=== PATIENT | female | born 1950 | race Two or more races ===

== ENCOUNTER 2019-11-27 10:37 | Emergency (ER) | payer MEDICARE ==
[~2019-11-27] VITALS: Ht 175.3 cm; Wt 38.6 kg
--- NOTE | 2019-11-27 10:45 | NUR ---
PT BIBA RA 89 "Was walking before breakfast felt dizzy/weak-fainted." PT IS AAOX4, NOT IN RESPIRATORY DISTRESS, V/S STABLE, KEPT RESTED AND COMFORTABLE, WILL CONTINUE TO MONITOR.
--- NOTE | 2019-11-27 10:47 | NUR ---
SEEN AND EXAMINED BY DR. ALFARO.
--- NOTE | 2019-11-27 10:50 | NUR ---
ER PHLEB AT BEDSIDE FOR BLOOD DRAW.
[2019-11-27] MEDS ORDERED: SPIR25TA6 PO (10:52)
[2019-11-27] MEDS ORDERED: LEVO75TA7 PO (10:52)
[2019-11-27 10:58] LABS: BASOPHILS # (AUTO) 0.1 /CMM (0.0-0.2); BASOPHILS % (AUTO) 2.4 % (0.0-2.0); EOSINOPHILS % (AUTO) 2.3 % (0.0-6.0); HEMATOCRIT 40 % (33-45); HEMOGLOBIN 13.3 g/dL (11.5-14.8); LYMPHOCYTES # (AUTO) 0.5 /CMM (0.8-4.8); LYMPHOCYTES % (AUTO) 18.2 % (20.0-44.0); MEAN CORPUSCULAR HGB CONC 33 g/dl (31.0-36.0); MEAN CORPUSCULAR VOLUME 103 fL (82-100); MONOCYTES # (AUTO) 0.2 /CMM (0.1-1.30); MONOCYTES % (AUTO) 7.2 % (2.0-12.0); NEUTROPHILS # (AUTO) 1.8 /CMM (1.8-8.9); NEUTROPHILS % (AUTO) 69.9 % (43.0-81.0); PLATELET COUNT (AUTO) 133 /CMM (150-450); RED BLOOD CELL COUNT(AUTO) 3.87 MIL/uL (4.0-5.2); WHITE BLOOD COUNT (AUTO) 2.5 K/uL (4.3-11.0)
[2019-11-27] MEDS ORDERED: IV NS 0.9% 1,000 ML BAG IV ONE (11:00)
--- NOTE | 2019-11-27 11:03 | NUR ---
PT IS WHEELED TO CT SCAN VIA [facility].
[2019-11-27 11:07] LABS: CALCIUM, SERUM 8.2 mg/dL (8.5-10.1); CREATININE 0.9 mg/dL (0.6-1.3); POTASSIUM 4.1 mmol/L (3.5-5.1)
--- NOTE | 2019-11-27 11:23 | NUR ---
JOYA SISTER [phone]
[2019-11-27 12:01] VITALS: BP 129/61
--- NOTE | 2019-11-27 12:01 | NUR ---
IV removed. Catheter intact and site benign. Pressure and 4x4 applied to site. No bleeding noted. Patient discharged to home in stable condition. Written and verbal after care instructions given. Patient verbalizes understanding of instruction.
[2019-11-27 12:35] LABS: BAND % (MANUAL) 1 % (0.0-5.0); EOSINOPHILS % (MANUAL) 3 % (0-4); LYMPHOCYTES % (MANUAL) 22 % (16-48); MONOCYTES % (MANUAL) 3 % (0-11.0); NEUTROPHILS % (MANUAL) 71 (42-76)
== END 2019-11-27 12:02 | disposition home or self-care (01) ==
LOC: ER 10:44
DX: R55 Syncope and collapse (principal); R42 Dizziness and giddiness; R53.1 Weakness; Z79.899 Other long term (current) drug therapy
CPT/HCPCS: 36415; 70450; 80048; 82962; 85025; 93005; 99285; J7040